=== PATIENT | female | born 1950 | race Caucasian/White ===

== ENCOUNTER → 2017-11-13 15:36 | Outpatient (CLI) | payer MEDICARE, BC, SELFPAY ==
--- NOTE | 2017-11-13 12:00 | COLBX_PTH ---
PATIENT: DOUG GUERRA LOC: [facility] U#:[id number] AGE/SX: 74/F ROOM: RE11/13/[address]: Dr. Ruben Young MD : 1950 BED: DIS: SPEC #: [id number] RECD: 11/13/17 15:24 STATUS: DEBORAH MIGUEL #: [id number] ZEYAD: 11/13/17 12:[address]: Ruben Young DEPT: SURGICAL PATHOLOGY RECD BY: Mark Weinstein ENTERED: 11/14/17 08:19 SP TYPE: COLON BX OTHR DR: Dr. Isabella Benz MD [facility] Tissues: Ascending colon Procedures: Surgery Specimen Level IV HEADER OPERATION: Colonoscopy with biopsies PRE-OP DIAGNOSIS: Screening/polyp TISSUE SUBMITTED: Proximal ascending colon, rule out adenoma MICROSCOPIC DIAGNOSIS Proximal ascending colon, biopsy: Tubular adenoma. SJ:frandy 11/15/17 MICROSCOPIC DESCRIPTION Slides are reviewed. GROSS DESCRIPTION Received in fixative is one container labeled with the patient's name and designated proximal ascending colon. The specimen consists of multiple irregular fragments of light peoples soft tissue that in aggregate measure 0.3 x 0.2 x 0.1 cm. The specimen is totally submitted in one cassette. / SJ:frandy 11/14/17 TC:1 CPT: 29327
--- NOTE | 2017-11-13 15:36 | DT_ITS ---
This patient was seen during an EMR downtime November 06, 2017 - November 13, 2017. This patient may have a combination of paper and electronic documentation or all paper documentation. All documentation is viewable within the e-chart portion of [facility] for each patient visit.
== END ==
PROVIDERS: Visit Provider Internal Medicine Gastroenterology
DX: Z12.11 Encounter for screening for malignant neoplasm of colon (principal); D12.2 Benign neoplasm of ascending colon
CPT/HCPCS: 88305

== ENCOUNTER → 2017-12-12 10:15 | Outpatient (CLI) | payer MEDICARE, BC, SELFPAY ==
--- NOTE | 2017-12-12 10:19 | BI_ITS ---
MAMMOGRAPHY - BILATERAL SCREENING REASON FOR EXAM: Female, 67 years old. Routine annual screening examination. PERTINENT HISTORY: Non-contributory. TECHNIQUE: Digital bilateral breast greta (3D mammographic acquisition) in the CC and MLO projections. 2-D mediolateral oblique (MLO) and craniocaudad (CC) views of both breasts were obtained. CAD: Full Field Digital Mammography with Computer Added Detection was performed. COMPARISON: Comparison is made with prior study dated November 28, 2016 and October 15, 2015. FINDINGS: Breast Composition: There are scattered areas of fibroglandular density. There are no dominant masses or suspicious calcifications. There is a 5.9 mm x 5.8 mm well-defined nodule in the superior lateral anterior aspect of the right breast. Correlation with ultrasound is recommended. This most likely represents a small lymph node. No other significant abnormalities are identified. There has been no significant change since the prior study. BI/SCREENING MAMM (CAD), BILAT IMPRESSION: 5.9 mm x 5.8 mm well-defined nodule in the right breast as described. Correlation with ultrasound is recommended. ASSESSMENT CATEGORY: BIRADS Category 0: Incomplete. Need additional imaging evaluation. A letter regarding these results will be sent to the patient by the facility within 30 days. Approximately 10% of breast cancers are not detected by mammography. A normal mammogram should not delay biopsy of a clinically suspicious abnormality. [id number] Electronically Signed: Skyler Vera MD at 12:29 EDT Tel [phone], Service support ,
== END ==
PROVIDERS: PCP Family Medicine; Visit Provider Family Medicine
DX: Z12.31 Encounter for screening mammogram for malignant neoplasm of breast (principal)
CPT/HCPCS: 77063; 77067

== ENCOUNTER → 2017-12-14 12:28 | Outpatient (CLI) | payer MEDICARE, BC, SELFPAY ==
--- NOTE | 2017-12-14 12:31 | US_ITS ---
STUDY: ULTRASOUND BREAST - RIGHT REASON FOR EXAM: Female, 67 years old. Abnormal screening mammogram. TECHNIQUE: Axial and longitudinal images of the RIGHT breast were performed with a high resolution ultrasound transducer. COMPARISON: Comparison is made with prior mammogram dated December 12, 2017. FINDINGS: RIGHT Breast: There is a 1.2 cm x 0.8 cm x 0.5 cm echogenic nodule with well-defined borders at the 10:00 percent of breast at 4 cm from the nipple. This most likely represents a lipoma. This does not correspond to the mammographic findings. Clinical correlation is recommended. US/Breast Limited Unilateral IMPRESSION: There is a 1.2 cm x 0.8 cm x 0.5 cm echogenic nodule at the 10:00 position breast at 4 cm from nipple. The nodule well circumscribed. This most likely represents a small lipoma. The mammographic abnormality is not visualized and most likely represents a small intramammary lymph node. ASSESSMENT CATEGORY: BIRADS Category 2: Benign. A letter regarding these results will be sent to the patient by the facility within 30 days. Electronically Signed: Skyler Vera MD at 13:21 EDT Tel [phone], Service support ,
== END ==
PROVIDERS: PCP Family Medicine; Visit Provider Family Medicine
DX: R92.8 Other abnormal and inconclusive findings on diagnostic imaging of breast (principal)
CPT/HCPCS: 76642

== ENCOUNTER → 2019-01-11 | Outpatient (CLI) | payer MEDICARE, BC, SELFPAY ==
--- NOTE | 2019-01-11 10:51 | BI_ITS ---
MAMMOGRAPHY - BILATERAL SCREENING REASON FOR EXAM: Female, 68 years old. Routine annual screening examination. PERTINENT HISTORY: Non-contributory. TECHNIQUE: Digital bilateral breast jean (3D mammographic acquisition) in the CC and MLO projections. 2-D mediolateral oblique (MLO) and craniocaudad (CC) views of both breasts were obtained. CAD: Full Field Digital Mammography with Computer Added Detection was performed. COMPARISON: Comparison is made with prior study dated December 12, 2017 and November 28, 2016. FINDINGS: Breast Composition: There are scattered areas of fibroglandular density. There are no dominant masses or suspicious calcifications. Stable 5.9 mm x 5.8 mm well-defined nodule in the superior lateral anterior aspect of the right breast. Stable small bilateral axillary lymph nodes. No other significant abnormalities are identified. There has been no significant change since the prior study. BI/SCREEN MAMM (CAD) W/JEAN BILAT IMPRESSION: Stable bilateral screening mammogram. Yearly follow-up mammogram recommended. (A) ASSESSMENT CATEGORY: BIRADS Category 2: Benign. A letter regarding these results will be sent to the patient by the facility within 30 days. Approximately 10% of breast cancers are not detected by mammography. A normal mammogram should not delay biopsy of a clinically suspicious abnormality. [id number] Electronically Signed: Skyler Vera, at 13:04 EDT , Service support ,
== END | disposition home or self-care (01) ==
LOC: OPBI 10:50
PROVIDERS: Family Provider Family Medicine; PCP Family Medicine; Referring Provider Family Medicine; Visit Provider Family Medicine
DX: Z00.00 Encounter for general adult medical examination without abnormal findings (principal); Z12.31 Encounter for screening mammogram for malignant neoplasm of breast
CPT/HCPCS: 77063; 77067

== ENCOUNTER → 2019-11-19 10:33 | Outpatient (CLI) | payer MEDICARE, BC, SELFPAY ==
[2019-11-19 12:34] LABS: Anion Gap 7 (5-15); BUN 7 mg/dL (7-18); BUN/Creat Ratio 8.7 RATIO (10-20); Calcium,Total 9.1 mg/dL (8.5-10.1); Chloride 105 mmol/L (98-107); Cholesterol 234 mg/dL (200); Creatinine, Serum 0.81 mg/dL (0.55-1.02); EST Glomerular Filtration Rate 75 mL/min (>60); Est Glom Filt Rate - Afr Amer 90 mL/min (>60); Glucose 92 mg/dL (74-106); High Density Lipoprotein 80 mg/dL; Potassium 4.3 mmol/L (3.5-5.1); Sodium Level 140 mmol/L (136-145); Triglycerides 101 mg/dL; Very Low Density Lipoprotein 20 mg/dL (5-40)
== END ==
PROVIDERS: PCP Family Medicine; Referring Provider Family Medicine; Visit Provider Family Medicine
DX: Z00.00 Encounter for general adult medical examination without abnormal findings (principal)
CPT/HCPCS: 36415; 80048; 80061

== ENCOUNTER → 2020-01-13 09:47 | Outpatient (CLI) | payer MEDICARE, BC, SELFPAY ==
[2019-12-03 14:29] VITALS: BMI 26.4
--- NOTE | 2020-01-13 09:50 | BI_ITS ---
MAMMOGRAPHY - BILATERAL SCREENING REASON FOR EXAM: Female, 69 years old. Routine annual screening examination. PERTINENT HISTORY: Non-contributory. TECHNIQUE: Digital bilateral breast jean (3D mammographic acquisition) in the CC and MLO projections. 2-D mediolateral oblique (MLO) and craniocaudad (CC) views of both breasts were obtained. CAD: Full Field Digital Mammography with Computer Added Detection was performed. COMPARISON: Comparison is made with prior examination 01/11/2019 and 12/13/2007 FINDINGS: Breast Composition: There are scattered areas of fibroglandular density. There are no dominant masses or suspicious calcifications. Stable 5.9 mm x 5.8 mm well-defined nodule in the anterior superior lateral aspect of the right breast. Stable benign-appearing bilateral axillary lymph nodes. No other significant abnormalities are identified. There has been no significant change since the prior study. BI/SCREEN MAMM (CAD) W/JEAN BILAT IMPRESSION: Stable bilateral screening mammogram. Yearly follow-up mammogram recommended. (A) ASSESSMENT CATEGORY: BIRADS Category 2: Benign. A letter regarding these results will be sent to the patient by the facility within 30 days. Approximately 10% of breast cancers are not detected by mammography. A normal mammogram should not delay biopsy of a clinically suspicious abnormality. [id number] Electronically Signed: Skyler Vera, at 11:01 EDT , Service support ,
== END ==
PROVIDERS: PCP Family Medicine; Referring Provider Family Medicine; Visit Provider Family Medicine
DX: Z00.00 Encounter for general adult medical examination without abnormal findings (principal); Z12.31 Encounter for screening mammogram for malignant neoplasm of breast
CPT/HCPCS: 77063; 77067

== ENCOUNTER → 2020-01-22 | Outpatient (CLI) | payer MEDICARE, BC, SELFPAY ==
--- NOTE | 2020-01-22 13:00 | MASS_PTH ---
PATIENT: DOUG GUERRA LOC: [facility] U#:[id number] AGE/SX: 69/F ROOM: RE01/22/[address]: Dr. Louis Mccabe MD : 1950 BED: DIS: 01/22/2020 SPEC #: [id number] RECD: 01/22/20 16:59 STATUS: DEBORAH REJen #: [id number] ZEYAD: 01/22/20 13:[address]: Louis Mccabe DEPT: SURGICAL PATHOLOGY RECD BY: Gamaliel Hermosillo ENTERED: 01/23/20 09:20 SP TYPE: Mass OTHR DR: Dr. Isabella Benz MD Tissues: Skin of back, NOS Procedures: Surgery Specimen Level III HEADER OPERATION: Excision right upper back mass PRE-OP DIAGNOSIS: Right back mass TISSUE SUBMITTED: Right upper back tissue MICROSCOPIC DIAGNOSIS Right upper back mass, excision: Mature adipose tissue consistent with lipoma. SJ:frandy 01/24/20 MICROSCOPIC DESCRIPTION Slides are reviewed. GROSS DESCRIPTION Received in fixative is one container labeled with the patient's name and designated right upper back. The specimen consists of a piece of yellow adipose tissue partly disrupted measuring 6 x 7 x 3 cm. Sections reveal yellow adipose cut surfaces without area of hemorrhage, necrosis or cystic degeneration. Black Off Worker sections are submitted in three cassettes. / HARLAN:frandy 01/23/20 TC:1 CPT: 83849
[2020-01-22 13:06] VITALS: BMI 26.4
== END | disposition home or self-care (01) ==
PROVIDERS: PCP Family Medicine; Referring Provider Surgery; Visit Provider Surgery
DX: R22.2 Localized swelling, mass and lump, trunk (principal)
CPT/HCPCS: 88304; 88305

== ENCOUNTER → 2021-01-19 10:08 | Outpatient (CLI) | payer MEDICARE, BC, SELFPAY ==
[2020-01-29 09:42] VITALS: BMI 26.4
--- NOTE | 2021-01-19 10:12 | BI_ITS ---
MAMMOGRAPHY - BILATERAL SCREENING REASON FOR EXAM: Female, 70 years old. Routine annual screening examination. PERTINENT HISTORY: Non-contributory. TECHNIQUE: Digital bilateral breast jean (3D mammographic acquisition) in the CC and MLO projections. 2-D mediolateral oblique (MLO) and craniocaudad (CC) views of both breasts were obtained. CAD: Full Field Digital Mammography with Computer Added Detection was performed. COMPARISON: Comparison is made with prior study 01/13/2020 and 01/11/2019. FINDINGS: Breast Composition: There are scattered areas of fibroglandular density. There are no dominant masses or suspicious calcifications. There is a stable 5.8 mm x 5.9 mm well-defined nodule in the anterior superior lateral aspect of the right breast. Stable benign appearing bilateral axillary lymph nodes. No other significant abnormalities are identified. There has been no significant change since the prior study. BI/SCRN MAMM (CAD)W/JEAN BILAT IMPRESSION: Stable bilateral screening mammogram. Yearly follow-up mammogram recommended. (A) ASSESSMENT CATEGORY: BIRADS Category 2: Benign. A letter regarding these results will be sent to the patient by the facility within 30 days. Approximately 10% of breast cancers are not detected by mammography. A normal mammogram should not delay biopsy of a clinically suspicious abnormality. [id number] Electronically Signed: Skyler Vera MD at 11:12 EDT , Service support ,
--- NOTE | 2021-01-19 10:15 | BD_ITS ---
STUDY: DUAL ENERGY X-RAY ABSORPTIOMETRY / DXA REASON FOR EXAM: Female, 70 years old. [id number]. Patient is postmenopausal. TECHNIQUE: Bone Mineral Density (BMD) measurements of lumbar spine and bilateral hips were obtained. COMPARISON: Comparison is made with prior study dated 11/19/2014. FINDINGS: Lumbar Spine (L1-L4): g/cm2 (1.098) / T-score (0.6) / Z-score (2.7) Findings are suggestive of normal bone density with a low fracture risk. Left Femur Total: g/cm2 (0.899) / T-score (-0.4) / Z-score (1.2) Left Femoral Neck: g/cm2 (0.774) / T-score (-0.7) / Z-score (1.1) Right Femur Total: g/cm2 (0.950) / T-score (0.1) / Z-score (1.6) Right Femoral Neck: g/cm2 (0.861) / T-score (0.1) / Z-score (1.9) The T-Scores on the most recent prior examination were: Lumbar Spine (L1-L4): There has been worsening of bone density since the previous examination. Left Femur Total: which represents a worsening of 6.5%. Right Femur Total: which represents a worsening of 3.6%. BD/Dexa Bone Density Study IMPRESSION: The patient is considered normal as outlined below according to World Is[employer] Organization (WHO) criteria with a low fracture risk. There has been worsening of bone density since the previous examination. Reference Information: The T-score is the number of standard deviations above or below the standard which is normal for young adults at their peak bone mineral density. The World Health Organization (WHO) interprets the T-scores as follows: Above -1 Normal bone density Between -1 and -2.5 Osteopenia Equal to / or below -2.5 Osteoporosis As a practical clinical guideline, osteopenia may be graded as follows: Mild -1 through -1.5 Moderate -1.6 through -2.0 Severe -2.1 through -2.4 The Z-score is the number of standard deviations above or below age-matched controls. A Z-score of less than -1.5 would be considered abnormal. References: 1. NIH Osteoporosis and Related Bone Diseases www osteo.org 2. International Society for Clinical Densitometry www iscd.org 3. National Osteoporosis Foundation www nof.org Electronically Signed: Skyler Vera MD at 15:32 EDT , Service support ,
== END ==
PROVIDERS: PCP Family Medicine; Referring Provider Family Medicine; Visit Provider Family Medicine
DX: Z12.31 Encounter for screening mammogram for malignant neoplasm of breast (principal); N95.9 Unspecified menopausal and perimenopausal disorder
CPT/HCPCS: 77063; 77067; 77080

== ENCOUNTER 2021-11-08 10:30 | Outpatient (RCR) | payer MEDICARE, BC, SELFPAY ==
--- NOTE | 2021-10-20 14:56 | HP.PTEVAL_ITS ---
Patient's Visit Information DOUG GUERRA is a 71 year old F referred to Physical Therapy by Dr. Isabella Benz MD with a diagnosis of R ITB syndrome. Date of Evaluation: 10/20/21 Physical Therapist: Alexx Stark, EMIGDIOT, OCS, CSCS - Visit Plan Frequency: 3x /Week Duration: 4-6 Weeks Plan: 3x/week for 4 weeks for. 1. STM rollotu to R ITB, piriformis and quad with MH. 2. stretch same. 3. strength R hip. 4. TENS with ice as needed. - Subjective R ITB syndrome. October 02 it started when weeding sitting on low stool for a few hours for first time this year. Later that evening started getting pain in hip and whole R leg hurt. Has seen a chiropractor since then and he thinks it is ITB also. He gave her stretches and ROM to do. They don't help enough. Not improving overall. Sleeping is awful. Wants to sleep on tummy or left side but has not mattered as it just hurts. R leg feels weak on steps. Pain is laterally up to 5/10. Sitting today is 3/10. No other treatments of hip. No history of hip pain. Tried ice and ibuprofen. No imaging. No regular exercises. basic ADLs are getting done but it hurts to get up off the floor. Hobbies: gardening is challenging due to pain. No steps at home of any significance. - Pain R leg lateral. Pain Intensity (Out of 10): 3 Pain Intensity Range: 1, 5 - Objective R ITb syndrome. Max tenderness R GT and ITB , min in L. Walks normal without antalgia today and I, trasnfers chair I with some pain. Steps reciprocally weak on R but no increase pain today. ITB R much tighter than L , R quad very tight and tender,. AROM ext 5 R and 10 L, flexion symmetrical. abduction symmmetrical. rotations hips symmetrical and without pain. Knee and ankle AROM symmetrical. 4/5 strength. Hip abd and ext 4- B. flexion 4- R adn 4 L. - [place], - FADDIR. reflexes 1/3 B patella and achilles. Sensation LE WNL to gross light touch. - Balance/Special Test Scores Lower Extremity Functional Score: 74 - Goals Goal 1:: Pain in R LE 1/10 at worst and 90% improved. Goal Time Frame: 4-6 Weeks Goal 2:: Patient able to sleep without waking at night due to pain. Goal Time Frame: 2-4 Weeks Goal 3:: I appropriate management of condition Goal Time Frame: 4-6 Weeks Goal 4:: LEFS score 79/80 Goal Time Frame: 4-6 Weeks - Rehabilitation Potential Physical Therapy Diagnosis: R itb syndrome and pain R hip Rehabilitation Potential: Good - Anticipated Interventions Patient/Client Instruction: Educate patient on: Condition, Plan of Care For the Purpose of:: To decrease pain, To increase ROM, To improve nutrient de livery to tissue, To improve muscle performance and motor function Therapeutic Exercise to Include: Strength training, Postural training, Flexibilty training, Passive ROM, Active ROM For the Purpose of:: To decrease pain, To increase ROM, To improve nutrient delivery to tissue, To improve muscle performance and motor function, To increase tolerance to activity/condition/position, To improve ability of physical actions for home/community/work/leisure Manual Therapy Techniques to Include: Mobilization, Passive ROM, Soft tissue mobilization For the Purpose of:: To decrease pain, To increase ROM, To improve nutrient delivery to tissue, To improve muscle performance and motor function TENS: Yes Cryotherapy (ice pack, ice massage): Yes Thermo therapy (hot pack): Yes For the Purpose of:: To decrease pain, To increase ROM Thank you for the opportunity to evaluate your patient. For Medicare and Medicare HMO plans, please review the plan of care and approve it. It will need to be FAXED BACK to us at [phone] for Medicare purposes. For Medicare only, by signing this I certify the plan of care. Please let me know if there are questions or concerns regarding this plan of care. Physician Signature: Date:
--- NOTE | 2021-11-08 11:27 | HP.PTREVAL_ITS ---
Dr. Isabella Benz MD, It has been my pleasure to treat DOUG GUERRA over the last 7 visits for R ITB syndrome. Please see the progress note below for an update on the physical therapy plan of care! Subjective: Most of the time she is doing exercises twice a day. She was going down 1 step off the patio and rolled her ankle and it is black and blue. She is concerned that she is not strong enough and gave out on her. She had some achy this morning as she slept on it wrong but it is ok now. Objective/Function: Discussed weakness in leg and importance of continuing strengthening at home. Issued green band for more resistance. Discussed continuing stretching 3 X/ week and avoiding a lot of repetitive activity with rest breaks. Instructed in sit to stand strengthening for Quad/HS strength Plan Plan: Hold chart X 2 weeks. Pt will continue with HEP and if she is not feeling like she is getting stronger, she will contact Alexx Stark DPT to come back in for a round of strengthening Balance/Gait/Functional tests - Balance/Special Test Scores Lower Extremity Functional Score: 60 Goals Goal 1:: Pain in R LE 1/10 at worst and 90% improved. Goal Time Frame: 4-6 Weeks Goal Progress: Goal Met Goal 2:: Patient able to sleep without waking at night due to pain. Goal Time Frame: 2-4 Weeks Goal Progress: Goal Met Goal 3:: I appropriate management of condition Goal Time Frame: 4-6 Weeks Goal Progress: Goal Met Goal 4:: LEFS score 79/80 Goal Time Frame: 4-6 Weeks Goal Progress: Progressing Anticipated Interventions Patient/Client Instruction: Educate patient on: Condition, Plan of Care For the Purpose of:: To decrease pain, To increase ROM, To improve nutrient delivery to tissue, To improve muscle performance and motor function Therapeutic Exercise to Include: Strength training, Postural training, Flexib ilty training, Passive ROM, Active ROM For the Purpose of:: To decrease pain, To increase ROM, To improve nutrient delivery to tissue, To improve muscle performance and motor function, To increase tolerance to activity/condition/position, To improve ability of physical actions for home/community/work/leisure Manual Therapy Techniques to Include: Mobilization, Passive ROM, Soft tissue mobilization For the Purpose of:: To decrease pain, To increase ROM, To improve nutrient delivery to tissue, To improve muscle performance and motor function TENS: Yes Cryotherapy (ice pack, ice massage): Yes Thermo therapy (hot pack): Yes For the Purpose of:: To decrease pain, To increase ROM Please do not hesitate to contact me at [phone] by phone or if you have questions or concerns regarding this new plan of care! Sincerely, Yudi Weaver, MPT
--- NOTE | 2021-11-23 09:31 | HP.PT.NRP ---
DOUG GUERRA was seen in my office for initial evaluation on 10/20/21. The following Plan of Care was established for this patient: Initial Frequency: 3x /Week Initial Duration: 4-6 Weeks Patient/Client Instruction: Educate patient on: Condition, Plan of Care For the Purpose of:: To decrease pain, To increase ROM, To improve nutrient delivery to tissue, To improve muscle performance and motor function Therapeutic Exercise to Include: Strength training, Postural training, Flexibilty training, Passive ROM, Active ROM For the Purpose of:: To decrease pain, To increase ROM, To improve nutrient delivery to tissue, To improve muscle performance and motor function, To increase tolerance to activity/condition/position, To improve ability of physical actions for home/community/work/leisure Manual Therapy Techniques to Include: Mobilization, Passive ROM, Soft tissue mobilization For the Purpose of:: To decrease pain, To increase ROM, To improve nutrient delivery to tissue, To improve muscle performance and motor function TENS: Yes Cryotherapy (ice pack, ice massage): Yes Thermo therapy (hot pack): Yes For the Purpose of:: To decrease pain, To increase ROM This patient was last seen in our office 11/08/21. Pertinent comments regarding their Physical therapy will appear below: Pt seen 7 visits and was 95% better at last follow up. She called to state she did not need any further visits and wished to be discharged. At this point I will be discontinuing this patient from physical therapy. I would be happy to see this patient again in the future if found appropriate by the physician. Thank you! Alexx Stark, DPT, OCS, CSCS Balance/Gait/Functional tests - Balance/Special Test Scores Lower Extremity Functional Score: 60
== END 2021-11-08 19:00 | disposition home or self-care (01) ==
LOC: PT 10:30
PROVIDERS: PCP Family Medicine; Referring Provider Family Medicine; Visit Provider Family Medicine
DX: M76.31 Iliotibial band syndrome, right leg (principal)
CPT/HCPCS: 97110; 97140; 97162; 97530

== ENCOUNTER → 2022-01-20 | Outpatient (CLI) | payer MEDICARE, BC, SELFPAY ==
--- NOTE | 2022-01-20 13:46 | BI_ITS ---
MAMMOGRAPHY - BILATERAL SCREENING REASON FOR EXAM: Female, 71 years old. Routine annual screening examination. PERTINENT HISTORY: Non-contributory. TECHNIQUE: Digital bilateral breast jean (3D mammographic acquisition) in the CC and MLO projections. 2-D mediolateral oblique (MLO) and craniocaudad (CC) views of both breasts were obtained. CAD: Full Field Digital Mammography with Computer Added Detection was performed. COMPARISON: Comparison is made with prior study date 01/19/2021 and 01/13/2020. FINDINGS: Breast Composition: There are scattered areas of fibroglandular density. There are no dominant masses or suspicious calcifications. Stable 5.9 mm nodule in the anterior superior lateral aspect of the right breast. Stable benign-appearing bilateral axillary lymph nodes. No other significant abnormalities are identified. There has been no significant change since the prior study. BI/SCRN MAMM (CAD)W/JEAN BILAT IMPRESSION: Stable bilateral screening mammogram. Yearly follow-up mammogram recommended. (A) ASSESSMENT CATEGORY: BIRADS Category 2: Benign. A letter regarding these results will be sent to the patient by the facility within 30 days. Approximately 10% of breast cancers are not detected by mammography. A normal mammogram should not delay biopsy of a clinically suspicious abnormality. [id number] Electronically Signed: Skyler Vera MD at 14:27 EDT ,
== END | disposition home or self-care (01) ==
LOC: OPBI 13:43
PROVIDERS: PCP Family Medicine; Visit Provider Family Medicine
DX: Z12.31 Encounter for screening mammogram for malignant neoplasm of breast (principal)
CPT/HCPCS: 77063; 77067

== ENCOUNTER → 2023-01-23 | Outpatient (CLI) | payer MEDICARE, BC, SELFPAY ==
--- NOTE | 2023-01-23 10:42 | BI_ITS ---
MAMMOGRAPHY - BILATERAL SCREENING REASON FOR EXAM: Female, 72 years old. Routine annual screening examination. PERTINENT HISTORY: Non-contributory. TECHNIQUE: Digital bilateral breast jean (3D mammographic acquisition) in the CC and MLO projections. 2-D mediolateral oblique (MLO) and craniocaudad (CC) views of both breasts were obtained. CAD: Full Field Digital Mammography with Computer Added Detection was performed. COMPARISON: Screening mammogram from 01/20/2022, 01/19/2021. FINDINGS: Breast Composition: There are scattered areas of fibroglandular density. There are no dominant masses or suspicious calcifications. Stable benign-appearing bilateral axillary lymph nodes. Stable benign nodule in the right upper outer breast. No other significant abnormalities are identified. There has been no significant change since the prior study. BI/SCRN MAMM (CAD)W/JEAN BILAT IMPRESSION: Stable bilateral screening mammogram. Yearly follow-up mammogram recommended. (A) ASSESSMENT CATEGORY: BIRADS Category 2: Benign. A letter regarding these results will be sent to the patient by the facility within 30 days. Approximately 10% of breast cancers are not detected by mammography. A normal mammogram should not delay biopsy of a clinically suspicious abnormality. Electronically Signed: Jean Pierre Colon DO at 12:21 EDT ,
== END | disposition home or self-care (01) ==
LOC: OPBI 10:39
PROVIDERS: PCP Family Medicine; Referring Provider Family Medicine; Visit Provider Family Medicine
DX: Z12.31 Encounter for screening mammogram for malignant neoplasm of breast (principal)
CPT/HCPCS: 77063; 77067

== ENCOUNTER → 2023-06-27 | Outpatient (CLI) | payer MEDICARE, BC, SELFPAY ==
[2023-06-27 16:37] LABS: AST(SGOT) 20 U/L (15-37); Alanine Aminotransfer ALT/SGPT 24 U/L (13-56); Cholesterol 249 mg/dL (200); High Density Lipoprotein 90 mg/dL; Triglycerides 182 mg/dL; Very Low Density Lipoprotein 36 mg/dL (5-40)
== END | disposition home or self-care (01) ==
LOC: MTLAB 14:26
PROVIDERS: PCP Family Medicine; Referring Provider Family Medicine; Visit Provider Family Medicine
DX: E78.5 Hyperlipidemia, unspecified (principal)
CPT/HCPCS: 36415; 80061; 84450; 84460

== ENCOUNTER → 2023-09-01 | Outpatient (CLI) | payer MEDICARE, BC, SELFPAY ==
[2023-09-01 10:25] LABS: AST(SGOT) 25 U/L (15-37); Alanine Aminotransfer ALT/SGPT 29 U/L (13-56); Cholesterol 155 mg/dL (200); High Density Lipoprotein 90 mg/dL; Triglycerides 65 mg/dL; Very Low Density Lipoprotein 13 mg/dL (5-40)
== END | disposition home or self-care (01) ==
LOC: MTLAB 08:32
PROVIDERS: PCP Family Medicine; Referring Provider Family Medicine; Visit Provider Family Medicine
DX: E78.5 Hyperlipidemia, unspecified (principal)
CPT/HCPCS: 36415; 80061; 84450; 84460

== ENCOUNTER → 2024-01-25 | Outpatient (CLI) | payer MEDICARE, BC, SELFPAY ==
--- NOTE | 2024-01-25 10:18 | BI_ITS ---
MAMMOGRAPHY - BILATERAL SCREENING REASON FOR EXAM: Female, 73 years old. Routine annual screening examination. PERTINENT HISTORY: Non-contributory. TECHNIQUE: Digital bilateral breast jean (3D mammographic acquisition) in the CC and MLO projections. 2-D mediolateral oblique (MLO) and craniocaudad (CC) views of both breasts were obtained. CAD: Full Field Digital Mammography with Computer Added Detection was performed. COMPARISON: Comparison is made with prior study January 23, 2023 and January 20, 2022. FINDINGS: Breast Composition: There are scattered areas of fibroglandular density. There are no dominant masses or suspicious calcifications. There is a 4 mm well-defined nodule in the anterior central aspect of the right breast. Correlation with ultrasound is recommended. Stable small benign-appearing bilateral axillary No other significant abnormalities are identified. BI/SCRN MAMM (CAD)W/JEAN BILAT IMPRESSION: 4 mm well-defined nodule in the anterior central aspect of the right breast. Correlation with ultrasound is recommended. ASSESSMENT CATEGORY: BIRADS Category 0: Incomplete. Need additional imaging evaluation. A letter regarding these results will be sent to the patient by the facility within 30 days. Approximately 10% of breast cancers are not detected by mammography. A normal mammogram should not delay biopsy of a clinically suspicious abnormality. [id number] Electronically Signed: Skyler Vera MD at 12:29 EDT ,
--- NOTE | 2024-01-25 10:24 | BD_ITS ---
STUDY: DUAL ENERGY X-RAY ABSORPTIOMETRY / DXA REASON FOR EXAM: Female, 73 years old. [id number] TECHNIQUE: Bone Mineral Density (BMD) measurements of lumbar spine and bilateral hips were obtained. COMPARISON: Comparison is made with prior study dated January 19, 2021. FINDINGS: Lumbar Spine (L1-L4): g/cm2 (1.133) / T-score (1.0) / Z-score (3.3) Findings are suggestive of normal bone density with a low fracture risk. Left Femur Total: g/cm2 (0.887) / T-score (-0.4) / Z-score (1.) Left Femoral Neck: g/cm2 (0.717) / T-score (-1.2) / Z-score (0.8) Right Femur Total: g/cm2 (0.930) / T-score (-0.1) / Z-score (1.6) Right Femoral Neck: g/cm2 (0.797) / T-score (-0.5) / Z-score (1.5) The T-Scores on the most recent prior examination were: Lumbar Spine (L1-L4): There has been worsening of bone density since the previous examination. Left Femur Total: which represents a worsening of 1.3%. Right Femur Total: which represents a worsening of 2.2%. BD/Dexa Bone Density Study IMPRESSION: The patient is considered osteopenic as outlined below according to World [employer] Organization (WHO) criteria with a low fracture risk. There has been worsening of bone density since the previous examination. Reference Information: The T-score is the number of standard deviations above or below the standard which is normal for young adults at their peak bone mineral density. The World Health Organization (WHO) interprets the T-scores as follows: Above -1 Normal bone density Between -1 and -2.5 Osteopenia Equal to / or below -2.5 Osteoporosis As a practical clinical guideline, osteopenia may be graded as follows: Mild -1 through -1.5 Moderate -1.6 through -2.0 Severe -2.1 through -2.4 The Z-score is the number of standard deviations above or below age-matched controls. A Z-score of less than -1.5 would be considered abnormal. References: 1. NIH Osteoporosis and Related Bone Diseases www osteo.org 2. International Society for Clinical Densitometry www iscd.org 3. National Osteoporosis Foundation www nof.org Electronically Signed: Skyler Vera MD at 8:49 EDT ,
== END | disposition home or self-care (01) ==
LOC: OPBD 10:18
PROVIDERS: PCP Family Medicine; Referring Provider Family Medicine; Visit Provider Family Medicine
DX: Z12.31 Encounter for screening mammogram for malignant neoplasm of breast (principal); N95.9 Unspecified menopausal and perimenopausal disorder
CPT/HCPCS: 77063; 77067; 77080

== ENCOUNTER → 2024-01-30 | Outpatient (CLI) | payer MEDICARE, BC, SELFPAY ==
--- NOTE | 2024-01-30 10:37 | US_ITS ---
STUDY: ULTRASOUND BREAST - RIGHT REASON FOR EXAM: Female, 73 years old. Abnormal screening mammogram. TECHNIQUE: Axial and longitudinal images of the RIGHT breast were performed with a high resolution ultrasound transducer. # OF IMAGES: 9 COMPARISON: Comparison is made with prior mammogram dated January 25, 2024 and prior sonogram of the right breast dated December 15, 1999 FINDINGS: RIGHT Breast: There is a 1 cm x 0.7 cm x 1 cm echogenic nodule at the 11:00 position of the breast at 3 cm from the nipple. This is unchanged and most likely represents a lipoma. US/Breast Limited Unilateral IMPRESSION: Stable 1 cm x 0.77 x 1 some echogenic nodule at 11:00 position of the breast at 3 cm from nipple suggestive of a lipoma. ASSESSMENT CATEGORY: BIRADS Category 2: Benign. A letter regarding these results will be sent to the patient by the facility within 30 days. Electronically Signed: Skyler Vera MD at 9:01 EDT ,
== END | disposition home or self-care (01) ==
LOC: OPUS 10:35
PROVIDERS: PCP Family Medicine; Referring Provider Family Medicine; Visit Provider Family Medicine
DX: R92.8 Other abnormal and inconclusive findings on diagnostic imaging of breast (principal)
CPT/HCPCS: 76642

== ENCOUNTER 2024-05-17 20:35 | Emergency (ER) | payer MEDICARE, BC, SELFPAY ==
[2024-05-17 20:36] VITALS: BP 186/96; PULSE 81; RESP 18; TEMP 36.8; O2SAT 100; BMI 28.8
--- NOTE | 2024-05-17 20:45 | CT_ITS ---
INDICATION: right flank/groin pain COMPARISON: None. A radiation dose optimization technique was used for this scan. RADIATION DOSAGE (If Supplied By Facility): CTDIvol/DLP = ( 8.41 ) / ( 399.37 ) mGy/mGycm FINDINGS: Noncontrast serial CT axial images through the abdomen and pelvis with coronal and sagittal reformatted series. PANCREAS: No peripancreatic fat stranding. BOWEL/MESENTERY: No dilated bowel loops. No significant free fluid. No free air. Distal colonic diverticulosis without evidence of diverticulitis. GALLBLADDER: No pericholecystic fat stranding. LIVER/STOMACH: Two tiny hypoattenuating hepatic lesions too small to characterize further. URINARY COLLECTING SYSTEM/ KIDNEYS: No obstructing ureteral calculus. No significant renal parenchymal abnormality. APPENDIX: Normal caliber appendix. LUNG BASES: Left lateral lung base 5 mm pulmonary nodule on axial image 7 of series 2. BONES: Unremarkable for age. CT/Abdomen/Pelvis without Cont IMPRESSION: No acute abdominal abnormality is identified, to include normal appendix and no evidence of obstructing ureteral calculus. Pulmonary nodule. Recommend comparison with previous imaging to document long-term stability versus follow-up evaluation as per Fleischner guidelines as neoplastic process is not excluded. Electronically Signed: Elder Meredith MD at 22:14 EST ,
--- NOTE | 2024-05-17 20:46 | EDS_ITS ---
HPI History of Present Illness Chief Complaint: Abd Pain Informant: patient and spouse/S.O. Narrative Narrative: Sudden worsening pain right groin a couple hours ago intermittent sharp twinges. Currently asymptomatic. Been having symptoms on for 2 months. No urinary symptoms. No dysuria no hematuria. No fever chills or sweats. No urinary symptoms. Bilateral tubal ligation in the past. No other abdominal surgeries. No allergies. No history of kidney stones. Prior similar symptoms: Yes PFSH PFSH Medical History (Updated 05/17/24 @ 22:[address] DO) Lipoma of back Lipoma Allergies Home Medications ?Medication ?Instructions ?Recorded ?Last Taken ?Type aspirin 81 mg chewable tablet (St 81 mg PO DAILY 12/03/19 Unknown History Ty Aspirin) conjugated estrogens 0.625 mg 0.625 mg PO .COMPLEX 12/03/19 Unknown History tablet (Premarin) fexofenadine 180 mg tablet 180 mg PO DAILY 12/03/19 Unknown History fluticasone propionate 50 1 spray intranasal DAILY 12/03/19 Unknown History mcg/actuation nasal spray,suspension (Allergy Relief (fluticasone)) propylene glycol 0.6 % eye drops 1 drp ophthalmic (eye) DAILY PRN 12/03/19 Unknown History (Systane Balance) nitrofurantoin 100 mg PO Q12 #14 CAPSULES 05/17/24 Unknown Rx monohydrate/macrocrystals 100 mg capsule Allergy/AdvReac Type Severity Reaction Status Date / Time No Known Allergies Allergy Verified 01/29/20 09:36 Family History Brother Diabetes Heart disease Cancer prostate Sister Diabetes Hypertension Father Heart disease Hypertension Social History Smoking Status: Never smoker alcohol intake: current alcohol intake frequency: holidays/special occasions only ROS ROS ED Constitutional Constitutional ED: Denies chills, fever(s) or sweats Eyes Eyes: Denies change in vision ENT ENT ED: Denies dysphagia or sore throat Cardiovascular Cardiovascular: Denies chest pain, leg edema, palpitations or racing heartbeat Respiratory/Chest Respiratory/Chest: Denies cough, dyspnea or dyspnea on exertion Gastrointestinal Gastrointestinal: Reports abdominal pain; Denies diarrhea, nausea or vomiting Genitourinary Genitourinary ED: Denies dysuria, hematuria or urinary frequency Musculoskeletal Musculoskeletal: Denies back pain, extremity pain or neck pain Integumentary Denies rash or wounds Neurologic Neurologic: Denies headache(s), paresthesias or weakness EXAM Physical Exam Const Vital Signs: 05/17/24 20:36 Temperature 98.3 F Temperature Source Oral Pulse Rate 81 Respiratory Rate 18 Blood Pressure 186/96 H Blood Pressure Mean 126 Pulse Ox 100 Oxygen Delivery Method Room Air Positive well nourished and well developed General Appearance ED: well developed and NAD HEENT Reports moist mucous membranes normocephalic and atraumatic Eyes EOMs intact bilaterally and conjunctivae normal General Eye ED: Yes normal appearance of both eyes Neck no lymphadenopathy and supple General: Negative for tenderness Chest Wall Chest: Negative for tenderness Resp normal respiratory effort and normal air movement Effort and Inspection: symmetric chest movement; Negative for respiratory distress Cardio regular rate, regular rhythm and no murmurs Peripheral Pulses: pulses 2+ throughout GI normal to inspection, nondistended, normoactive bowel sounds and non-tender GI Narrative: Negative Aguilera's or McBurney's tenderness. No masses palpated in the groin. Palpation: Negative for guarding or rebound tenderness present Back/Spine no CVA tenderness and no thoracic nor lumbar tenderness Extremity normal to inspection General Extremety ED: Negative for edema or tenderness General Extremity: Negative for edema Neuro oriented x3 and no sensory deficits noted Sensorium / Orientation: awake and alert Skin no rashes or lesions noted and no wounds MDM MDM MDM Narrative Medical decision making narrative: Interventions / MDM: Differential diagnosis: Nonspecific abdominal pain, pulmonary nodule Diagnosis considered but do not suspect: UTI, asymptomatic with culture pending. Kidney stone however CT negative. Appendicitis however CT negative. My EKG interpretation: N/A Imaging independently reviewed and interpreted by myself: CT abdomen pelvis: No obstructive process normal appendix. A 5 mm left lung base pulmonary nodule. External documents reviewed: N/A Test considered but not ordered:N/A ED course: Patient nontoxic currently asymptomatic intermittent pain right groin. Renal stone protocol initiated labs urine. CT scan. Labs normal white count creatinine 1.03. Urine notes cloudy urine moderate leukocytes 5-10 WBCs 1+ bacteria. [address] scan negative for obstructive kidney process. Normal appendix. Incidental findings of a pulmonary nodule left base 5 mm. Discussed this with the patient she has no tobacco history. This will need to be followed as an outpatient. Urine culture sent as she is asymptomatic. She had chronic urine infections and cystitis 40 years ago with symptoms. I discussed [id number] prescription for which she will have with her in hand. They are leaving for [place] tomorrow. Discussed we will contact her if positive results begin treatment or if she develops urine symptoms. Patient understands and agrees with plan. All questions were answered. Re-evaluation: stable Disposition discussed with patient/family/significant other: Patient and significant other Case discussed with consulting clinician: N/A This note was generated with [employer] dictation software. It may contain incorrect words, spelling, and punctuation that were not noted in checking the note before signing. Lab Data Attestation: I reviewed the patient's lab results. Labs: Laboratory Results - last 24 hr 05/17/24 05/17/24 20:58 21:10 WBC 6.9 RBC 4.34 Hgb 12.8 Hct 39.6 MCV 91.2 MCH 29.5 MCHC 32.3 RDW Std Deviation 45.1 H RDW Coeff of Unnu 13.3 Plt Count 321 MPV 9.1 Immature Gran % (Auto) 0.100 Neut % (Auto) 62.6 Lymph % (Auto) 25.8 [place] % (Auto) 8.2 Eos % (Auto) 2.6 Baso % (Auto) 0.7 Absolute Neuts (auto) 4.3 Absolute Lymphs (auto) 1.78 Nucleated RBC % 0 Sodium 142 Potassium 3.7 Chloride 107 Carbon Dioxide 29.0 Anion Gap 6 BUN 17 Creatinine 1.03 H Estim Creat Clear Calc 46.79 Est GFR (MDRD) Af Amer 67 Est GFR (MDRD) Non-Af 56 L BUN/Creatinine Ratio 16.5 Glucose 174 H Calcium 9.1 Urine Color Yellow Urine Clarity Sl. Cloudy Urine pH 6.0 Ur Specific [place] 1.015 Urine Protein 15 H Urine Glucose (UA) Normal Urine Ketones Negative Urine Occult Blood 25 H Urine Nitrite Negative Urine Bilirubin Negative Urine Urobilinogen Normal Ur Leukocyte Esterase 100 H Urine RBC 0-5 SEEN Urine WBC 5-10 SEEN Ur Squamous Epith Cells 0-5 SEEN Urine Bacteria 1+ Urine Mucus 0 SEEN Radiography Diagnostic Testing: Clinical Impression(s) from Imaging Studies Abdomen/Pelvis CT 05/17/24 20:45 IMPRESSION: No acute abdominal abnormality is identified, to include normal appendix and no evidence of obstructing ureteral calculus. Pulmonary nodule. Recommend comparison with previous imaging to document long-term stability versus follow-up evaluation as per Fleischner guidelines as neoplastic process is not excluded. Electronically Signed: Elder Meredith MD at 22:14 EST , Discharge Plan Triage Chief Complaint: Abd Pain ED Provider: Phuc Lane Dx/Rx/DC Orders Clinical Impression: Abdominal pain, Incidental pulmonary nodule, > 3mm and < 8mm Instructions: Abdominal Pain, ED Pulmonary Nodule, Solitary Prescriptions: New nitrofurantoin monohyd/m-cryst 100 mg capsule 100 mg PO Q12 Qty: 14 0RF No Action Premarin 0.625 mg tablet 0.625 mg PO .COMPLEX Rx Instructions: twice weekly 0.625 mg PO; aspirin [St Ty Aspirin] 81 mg tablet,chewable 81 mg PO DAILY fexofenadine 180 mg tablet 180 mg PO DAILY fluticasone propionate [Allergy Relief (fluticasone)] 50 mcg/actuation spray,suspension 1 spray INTRANASAL DAILY Rx Instructions: administer into each nostril Systane Balance 0.6 % drops 1 drp OPHTHALMIC DAILY PRN Primary Care Provider: Isabella Benz Referrals: Isabella Benz MD [Primary Care Provider] - 1-2 Weeks Activity Restrictions/Additional Instructions: CT scan normal appendix no kidney stones. Incidental finding left lung base pulmonary nodule 5 mm. This she will need to be followed by your doctor. Urine shows signs of bacteria however your not having symptoms urine culture sent. You will be contacted if cultures are positive to begin antibiotic treatment. Take your prescription with you. Print Language: Taiwanese Disposition Disposition: Home, Self Care
[2024-05-17 21:08] LABS: Absolute Lymphocyte Count 1.78 X10^3/uL (0.83-4.51); Absolute Neutrophil Count 4.3 X10^3/uL (2.0-7.7); Basophil# 0.05 X10^3/uL; Basophil% 0.7 % (0-1); Eosinophil# 0.18 X10^3/uL; Eosinophils% 2.6 % (0-5); Hematocrit 39.6 % (37-47); Hemoglobin 12.8 g/dL (12.0-15.0); Lymphocyte # 1.78 X10^3/ul (0.83-4.51); Lymphocyte % 25.8 % (19-41); Mean Corp Hgb Conc 32.3 g/dL (32-36); Mean Corpuscular Hgb 29.5 pg (27.0-32.0); Mean Corpuscular Volume 91.2 fL (81-99); Mean Platelet Vol. 9.1 fl (6.2-12.0); Monocyte# 0.57 X10^3/uL; Monocyte% 8.2 % (0-10); NRBC Flagged by Analyzer 0 % (0-5); Neutrophil # 4.32 X10^3/uL (2.7-7.7); Neutrophil % 62.6 % (47-70); Platelet Count 321 K/mm3 (150-450); RBC Distribution Width CV 13.3 % (11.6-14.6); RBC Distribution Width SD 45.1 fl (35.1-43.9); Red Blood Count 4.34 M/mm3 (4.2-5.4); White Blood Count 6.9 K/mm3 (4.4-11.0)
[2024-05-17 21:19] LABS: Mucous, Urine 0 SEEN /hpf (<or=2+)
[2024-05-17 21:21] LABS: Color, Urine Yellow (Yellow); Glucose, Dipstick Normal (Normal); Ketone-Dipstick Negative (Negative); Leukocyte Esterase-Dipstick 100 /ul (Negative); Nitrite-Dipstick Negative (Negative); Occult Blood-Urine 25 /ul (Negative); Protein-Dipstick 15 mg/dl (Negative); Specific Gravity, Urine 1.015 (1.002-1.030); Urine Bilirubin Dipstick Negative (Negative); Urine Clarity Sl. Cloudy (Clear); Urine Urobilinogen Normal (Normal)
[2024-05-17 21:24] LABS: Anion Gap 6 (5-15); BUN 17 mg/dL (7-18); BUN/Creat Ratio 16.5 RATIO (10-20); Calcium,Total 9.1 mg/dL (8.5-10.1); Chloride 107 mmol/L (98-107); Creatinine, Serum 1.03 mg/dL (0.55-1.02); EST Glomerular Filtration Rate 56 mL/min (>60); Est Glom Filt Rate - Afr Amer 67 mL/min (>60); Estimated Creatinine Clearance 46.79 ml/min; Glucose 174 mg/dL (74-106); Potassium 3.7 mmol/L (3.5-5.1); Sodium Level 142 mmol/L (136-145)
[2024-05-17 21:35] LABS: Red Blood Cells-Urine 0-5 SEEN /hpf (0-5); Squamous Epithelial Cells - UA 0-5 SEEN /hpf (5-10); White Blood Cells 5-10 SEEN /hpf (0-5)
[2024-05-17 21:36] LABS: Bacteria 1+ /hpf (None Seen)
[2024-05-17 22:49] VITALS: BP 151/91; PULSE 74; RESP 17; TEMP 36.6; O2SAT 96
== END 2024-05-17 22:56 | disposition home or self-care (01) ==
PROVIDERS: Emergency Provider Emergency Medicine; PCP Family Medicine; Visit Provider Emergency Medicine
DX: R10.31 Right lower quadrant pain (principal); R91.1 Solitary pulmonary nodule
CPT/HCPCS: 74176; 80048; 81001; 85025; 87086; 87088; 99283; A4216

== ENCOUNTER → 2024-05-27 | Outpatient (CLI) | payer MEDICARE, BC, SELFPAY ==
--- NOTE | 2024-05-27 17:52 | CT_ITS ---
INDICATION: nodlue found in lung EXAMINATION: CT CHEST WITH CONTRAST - CT Chest W/ Contrast Injection TECHNIQUE: Helically acquired images were obtained of the chest following IV contrast. A radiation dose optimization technique was used for this scan. IV Contrast dosage and agent: COMPARISON: CT abdomen pelvis 05/17/2024 FINDINGS: LUNGS, PLEURA AND LARGE AIRWAYS: 4 mm noncalcified nodule peripherally in the right lower lobe of the lungs on image 83 and follow-up CT is recommended in 12 months to document stability per ACR guidelines. No pleural effusion or thickening. No pneumothorax. THYROID: No thyroid lesions. HEART AND PERICARDIUM: Heart size is normal. No pericardial effusion. VESSELS: Thoracic aorta is not dilated. No aortic dissection. No obvious central pulmonary embolism although this study was not performed with the pulmonary embolism protocol. MEDIASTINUM AND ASHLIE: No mediastinal or hilar adenopathy. Esophagus is unremarkable. No hiatal hernia. UPPER ABDOMEN: No acute pathology. BONES: No suspicious lytic or blastic abnormality. CT/Chest WITH Contrast IMPRESSION: 4 mm noncalcified right lower lobe nodule and follow-up CT is recommended in 12 months to document stability. Electronically Signed: Sterling Fernandez MD at 13:08 EST ,
== END | disposition home or self-care (01) ==
LOC: CT 17:49
PROVIDERS: PCP Family Medicine; Referring Provider Family Medicine; Visit Provider Family Medicine
DX: R93.89 Abnormal findings on diagnostic imaging of other specified body structures (principal)
CPT/HCPCS: 71260; Q9967; A4216

== ENCOUNTER → 2025-02-21 | Outpatient (CLI) | payer MEDICARE, BC, SELFPAY ==
--- NOTE | 2025-02-21 10:30 | BI_ITS ---
EXAM: SCRN MAMM (CAD)W/JEAN BILAT DATE: 02/21/2025 CLINICAL HISTORY: F, Age 74 y/o , SCREENING TECHNIQUE: Procedure Code: [id number] Modality: MG Procedure: SCRN MAMM (CAD)W/JEAN BILAT COMPARISON: Prior exam(s) dated 01/25/2024, 01/23/2023, 01/20/2022. FINDINGS: TISSUE DENSITY: There are scattered areas of fibroglandular density. Bilateral Breast Mammographic Findings: No significant masses, calcifications or other abnormalities are identified. BI/SCRN MAMM (CAD)W/JEAN BILAT IMPRESSION: There is no mammographic evidence of malignancy. OVERALL FINAL ASSESSMENT BI-RADS 1: NEGATIVE. RECOMMENDATION: Routine annual follow-up in 1 Year A letter with findings and recommendations will be mailed to the patient. Reading Location: [id number]
== END | disposition home or self-care (01) ==
LOC: OPBI 10:25
PROVIDERS: PCP Family Medicine; Referring Provider Family Medicine; Visit Provider Family Medicine
DX: Z12.31 Encounter for screening mammogram for malignant neoplasm of breast (principal)
CPT/HCPCS: 77063; 77067